=== PATIENT | female | born 1960 | race Caucasian/White ===

== ENCOUNTER 2024-09-08 13:02 | Emergency (ER) | payer BC, SELFPAY ==
[2024-09-08 13:30] VITALS: BP 246/148
--- NOTE | 2024-09-08 13:55 | ED.GENMED ---
History of Present Illness
General
Chief Complaint: Nose Bleed
Source: patient and spouse
Exam Limitations: none
Time Seen by Provider: 09/08/24 13:35
Nursing documentation reviewed up to this point in time: agreed with
History of Present Illness
History of Present Illness:
63-year-old female with history of hypertension presents to the emergency room with her family for evaluation of epistaxis. Patient reports onset of symptoms about 2 to 3 hours prior to arrival and they have been constant since that time. She
reports bleeding primarily of the right nare. No left nare epistaxis. She says she swallowed a small amount of blood but no heavy bleeding into the posterior oropharynx. She denies any trauma or injury. She denies having had this issue in the
past. She has had associated hypertension�unclear if hypertension preceded epistaxis or as a result of epistaxis and anxiety. She denies being on any blood thinners.
Past History
Past History
ED Past Medical History: HTN and Hypercholesterolemia
ED Past Surgical History: None
Social History
Tobacco: Non-smoker
Alcohol: None
Drug: None
Personal:
Living: with family
Review of Systems
Review of Systems
All Other Systems: ROS reviewed and negative except as documented in HPI and ROS
EENT: Reports other (Epistaxis)
Phy Exam
Physical Exam
Physical Exam:
General: Awake, alert, oriented x3; anxious but no acute distress; nasal clamp in place
Head: Normocephalic, atraumatic
Eyes: Conjunctiva normal
Nose: Left nare clear, right nare using bright red blood no clear source identified
Throat: Airway intact, no bleeding in the posterior oropharynx
Neck: Trachea midline, supple without meningismus
Lungs: Clear to auscultation bilaterally, no wheezing, rales, rhonchi
Heart: Regular rate
Neuro: No gross deficits, ambulatory
Skin: no rash
Extremities: Warm and well-perfused
Scores
Heart Failure Risk
Heart Failure Risk Score: Not Applicable
Heart Score for Chest Pain Patients
STEMI patient?: Not applicable
Withdrawal Assessment of Alcohol
Withdrawal Assessment Completed?: Not applicable
Course
Orders/Labs/Results
Orders:
Orders
09/08/24 13:51
Oxymetazoline HCl [Afrin Nasal Council] 30 sprays .ROUTE .STK-MED ONE
09/08/24 14:41
Labetalol HCl [Trandate] 10 mg IV NOW STA
09/08/24 14:42
Electrocardiogram (*1) Urgent
Reason for Study: Hypertension, Benign
EKG- Treatment ONCE
09/08/24 15:05
Complete Blood Count/With Diff Urgent
Comprehensive Metabolic Panel Urgent
HDL Cholesterol Urgent
Hemoglobin A1c [Glycohemoglobin (HgbA1c)] Urgent
LDL Cholesterol, Direct Urgent
09/08/24 15:45
Labetalol HCl [Trandate] 10 mg IV NOW STA
09/08/24 15:57
Irbesartan [Avapro] 75 mg PO NOW STA
Abnormal Lab Results
09/08/24
15:05
WBC 11.6 H 10^3/uL
(4.8-10.8)
Abs Immat Gran (auto) 0.1 H 10^3/uL
(0-0.05)
Absolute Neuts (auto) 9.4 H 10^3/uL
(1.4-6.5)
Immature Gran % 0.8 H %
(0-0.5)
Neutrophils % 80.6 H %
(42.2-75.2)
Lymphocytes % 12.0 L %
(20.5-51.1)
Glucose 115 H mg/dl
(70-99)
09/08/24 15:05
09/08/24 15:05
Vital Signs
Initial and Last Documented VS:
Initial Vital Signs
Pulse Resp BP Pulse Ox
108 18 246/148 97
09/08/24 13:30 09/08/24 13:30 09/08/24 13:30 09/08/24 13:30
Last Documented Vital Signs
Temp Pulse Resp BP Pulse Ox
36.8 C 82 18 187/97 97
09/08/24 17:29 09/08/24 17:29 09/08/24 17:29 09/08/24 17:29 09/08/24 13:30
MDM/Problems Addressed
Differential Diagnosis Includes:
Epistaxis
MDM/Problems Addressed:
63-year-old female presents with acute anterior epistaxis on the right nare. She has had associated hypertension. Vitals and exam as above. Will apply Afrin spray and direct pressure and reassess.
Patient hemostatic after Afrin and direct pressure. She does however remain severely hypertensive. She says that she had been on ARB and thiazide prior to COVID but has not been on medication for quite some time. She does not any chest pain,
shortness of breath, headache. Nevertheless she is severely hypertensive we will send screening labs and provide antihypertensives here.
Blood pressure improved with labetalol but still severely elevated, repeat labetalol. Previously was on irbesartan we will give a dose of this p.o. Clinically patient well-appearing asymptomatic. She remains hemostatic regarding her nosebleed. I
did review labs CBC and CMP unremarkable. EKG shows sinus rhythm. Continue to monitor.
Blood pressure greatly improved with treatment now down to 187/97. She has been persistently asymptomatic and she has been hemostatic since initially holding pressure as described above. Patient does not want to stay in the hospital and she is
requesting to be discharged at this point in time. Will restart on irbesartan 75 mg daily as well as hydrochlorothiazide. I advised patient that she must follow-up with her primary care physician as an outpatient within the next few days to week.
She feels comfortable with this. All questions answered.
Chronic conditions affecting care:
Hypertension
Chronic conditions affecting care: HTN
Acute Exacerbation and/or Progression of Chronic Illness:
Acutely hypertensive�managed as above
Acute Exacerbation and/or Progression of Chronic Illness: HTN
*Pulse Oximetry
Patient hypoxic: no
*EKG
Heart Rate: 102
Rate: tachycardiac
Rhythm: sinus and sinus tachycardia
Hume: normal axis
Interval: normal interval
QRS Pattern: left vent hypertrophy
Ischemia: non-specific ST changes
*Critical Care Note
Total Time (30-74mins, 75-104mins- exclusive of procedures): Not Applicable
Data Reviewed
Source: patient and spouse
ED Attending Note
-
Portions of this chart may have been created with voice recognition software.� Occasional wrong word or��sound alike� substitutions may have occurred due to the inherent limitations of voice recognition software.
Discharge Plan
Departure
Patient Disposition: Home (Routine Discharge)
Date of Disposition: 09/08/24
Time of Disposition: 17:32
Patient with high blood pressure during this ER visit?: Yes
Discharge Problem:
Acute anterior epistaxis, Hypertension
Instructions: Nosebleeds (DC), BLOOD PRESSURE
Prescriptions:
New
irbesartan-hydrochlorothiazide 150-12.5 mg tablet
1 tab PO DAILY Qty: 30 0RF
Referrals:
UNKNOWN - PT DOES,NOT KNOW [Family Provider] -
Activity Restrictions/Additional Instructions:
Thank you for visiting the Emergency Department at [facility].
1. Please schedule a follow up appointment as directed. Call first thing tomorrow morning to make an appointment.
2. If indicated, please take your medications as instructed and indicated on discharge paperwork.
3. If any of your symptoms do not improve, or persist, or become more severe within 6-12 hours, please return to the emergency department for further care.
4. Please return to the emergency department if you develop a headache, neck pain/stiffness, fever greater than 100.4F, chest pain, shortness of breath, persistent nausea, vomiting, slurred speech, difficulty walking, numbness/tingling, weakness,
signs of infection or any other symptoms that are worrisome to you.
Please call [phone] if you have any questions.
Interventions
Interventions:
ED-EENT Assessment Last Done: 09/08/24 15:10
Discharge Date and Time
Print Language: [id number]
[2024-09-08 14:26] VITALS: BP 252/156
[2024-09-08] MEDS: TRANDATE 10 MG IV ×2 (15:05→15:57)
[2024-09-08 15:25] LABS: % Basophils 0.6 % (0-2); % Eosinophils 0.9 % (0-6); % Immature Granulocytes 0.8 % (0-0.5); % Monocytes 5.1 % (1.7-9.3); % Neutrophils 80.6 % (42.2-75.2); Absolute Basophils 0.1 10^3/uL (0-0.2); Absolute Eosinophils 0.1 10^3/uL (0-0.7); Absolute Immature Granulocytes 0.1 10^3/uL (0-0.05); Absolute Lymphocytes 1.4 10^3/uL (1.2-3.4); Absolute Monocytes 0.6 10^3/uL (0.1-0.6); Absolute Neutrophils 9.4 10^3/uL (1.4-6.5); Hematocrit 44.9 % (37.0-47.0); Hemoglobin 15.4 g/dL (12.0-16.0); Mean Corp Hgb Conc. 34.3 g/dL (33.0-37.0); Mean Corpuscular Hgb 28.8 pg (27.0-31.0); Mean Corpuscular Volume 83.9 fL (81.0-99.0); Nucleated Red Blood Cells % 0 %; Platelet Count 303 10^3/uL (130-400); Red Blood Cell Count 5.35 10^6/uL (4.20-5.40); Red Cell Dist. Width 12.9 % (11.5-14.5); White Blood Cell Count 11.6 10^3/uL (4.8-10.8)
[2024-09-08 15:40] LABS: ALT (SGPT) 25 U/L (0-35); AST (SGOT) 23 U/L (14-36); Albumin 4.9 g/dl (3.5-5.0); Alkaline Phosphatase 86 U/L (38-126); Blood Urea Nitrogen 12 mg/dl (7-17); Calcium 9.3 mg/dl (8.4-10.2); Carbon Dioxide 25 mmol/L (22-30); Chloride 102 mmol/L (98-107); Glucose 115 mg/dl (70-99); HDL Cholesterol 67 mg/dl; Sodium 138 mmol/L (135-145); Total Bilirubin 0.6 mg/dl (0.2-1.3); Total Protein 7.9 g/dl (6.3-8.2); eGFR > 60.00
[2024-09-08 15:46] VITALS: BP 219/121
[2024-09-08] MEDS: AVAPRO 75 MG PO (16:13)
[2024-09-08 16:14] LABS: LDL Cholesterol, Direct 193 mg/dl
[2024-09-08 16:50] VITALS: BP 206/96
[2024-09-08 17:29] VITALS: BP 187/97
[2024-09-09 11:32] LABS: Glycohemoglobin (HgbA1c) 5.8 % (4.0-5.6)
== END 2024-09-08 17:42 | disposition home or self-care (01) ==
LOC: EMR 13:02
PROVIDERS: EMERGENCY PHYSICIAN Emergency Medicine
DX: R04.0 Epistaxis (principal); I10 Essential (primary) hypertension; E78.00 Pure hypercholesterolemia, unspecified; Z79.899 Other long term (current) drug therapy
CPT/HCPCS: 99283; 96374; 96376; 80053; 83036; 83718; 83721; 85025; 93005

== ENCOUNTER → 2024-09-21 09:56 | Outpatient (REF) | payer BC, SELFPAY ==
[2024-09-21 12:27] LABS: % Basophils 1.1 % (0-2); % Eosinophils 3.5 % (0-6); % Immature Granulocytes 0.7 % (0-0.5); % Lymphocytes 21.9 % (20.5-51.1); % Monocytes 7.7 % (1.7-9.3); % Neutrophils 65.1 % (42.2-75.2); Absolute Basophils 0.1 10^3/uL (0-0.2); Absolute Eosinophils 0.3 10^3/uL (0-0.7); Absolute Immature Granulocytes 0.1 10^3/uL (0-0.05); Absolute Monocytes 0.7 10^3/uL (0.1-0.6); Absolute Neutrophils 5.9 10^3/uL (1.4-6.5); Hematocrit 47.2 % (37.0-47.0); Hemoglobin 15.6 g/dL (12.0-16.0); Mean Corp Hgb Conc. 33.1 g/dL (33.0-37.0); Mean Corpuscular Hgb 28.6 pg (27.0-31.0); Mean Corpuscular Volume 86.6 fL (81.0-99.0); Mean Platelet Volume 10.3 fL (7.4-10.4); Nucleated Red Blood Cells % 0 %; Platelet Count 315 10^3/uL (130-400); Red Blood Cell Count 5.45 10^6/uL (4.20-5.40); Red Cell Dist. Width 12.8 % (11.5-14.5); White Blood Cell Count 9.1 10^3/uL (4.8-10.8)
[2024-09-21 12:35] LABS: Erythrocyte Sed Rate 15 mm/hour (0-20)
[2024-09-21 12:43] LABS: Urine Albumin Negative (Neg - Trace); Urine Bilirubin Negative (Negative); Urine Glucose Negative (Negative); Urine Ketone Negative (Negative); Urine Leukocyte Trace (Negative); Urine Nitrite Negative (Negative); Urine Occult Blood Negative (Negative); Urine Specific Gravity 1.005 (<1.030); Urine Urobilinogen Negative (Neg - 1+)
[2024-09-21 12:44] LABS: Urine Character Clear (Clear); Urine Color Straw
[2024-09-21 13:13] LABS: ALT (SGPT) 25 U/L (0-35); AST (SGOT) 21 U/L (14-36); Albumin 4.8 g/dl (3.5-5.0); Alkaline Phosphatase 89 U/L (38-126); Blood Urea Nitrogen 13 mg/dl (7-17); Calcium 9.9 mg/dl (8.4-10.2); Carbon Dioxide 27 mmol/L (22-30); Chloride 99 mmol/L (98-107); Glucose 114 mg/dl (70-99); HDL Cholesterol 58 mg/dl; LDL Cholesterol, Calculated 178 mg/dl; Potassium 4.3 mmol/L (3.5-5.1); Sodium 137 mmol/L (135-145); Total Bilirubin 0.7 mg/dl (0.2-1.3); Total Cholesterol 279 mg/dl (50-199); Total Protein 7.7 g/dl (6.3-8.2); Triglyceride 217 mg/dl (10-149); Very Low Density Lipoprotein 43 mg/dl (0-30); eGFR > 60.00
[2024-09-21 13:29] LABS: Urine Squamous Cell >30 /LPF (Few)
[2024-09-21 13:30] LABS: Urine Bacteria Few (Negative)
[2024-09-21 13:35] LABS: Glycohemoglobin (HgbA1c) 5.9 % (4.0-5.6)
[2024-09-21 13:44] LABS: TSH Reflex To Free T4 3.49 uIU/ml (0.47-4.68)
== END ==
LOC: HWLAB 09:56
PROVIDERS: ATTENDING PHYSICIAN Student in an Organized Health Care Education/Training Program
DX: R73.01 Impaired fasting glucose (principal); R09.89 Other specified symptoms and signs involving the circulatory and respiratory systems; E78.2 Mixed hyperlipidemia
CPT/HCPCS: 36415; 80053; 80061; 81003; 81015; 83036; 84443; 85025; 85652; 86140

== ENCOUNTER → 2024-09-26 08:28 | Outpatient (REF) | payer BC, SELFPAY | LOC: RAD 08:28 | PROVIDERS: ATTENDING PHYSICIAN Student in an Organized Health Care Education/Training Program | DX: R09.89 Other specified symptoms and signs involving the circulatory and respiratory systems (principal); I10 Essential (primary) hypertension | CPT/HCPCS: 93975 ==

== ENCOUNTER → 2024-10-06 14:49 | Outpatient (REF) | payer BC, SELFPAY | LOC: DHSLP 14:49 | PROVIDERS: ATTENDING PHYSICIAN Student in an Organized Health Care Education/Training Program | DX: G47.33 Obstructive sleep apnea (adult) (pediatric) (principal) | CPT/HCPCS: 95800 ==

== ENCOUNTER → 2024-10-10 09:48 | Outpatient (REF) | payer BC, SELFPAY ==
[2024-10-10 11:51] LABS: Urine Albumin Negative (Neg - Trace); Urine Bilirubin Negative (Negative); Urine Character Clear (Clear); Urine Color Yellow; Urine Glucose Negative (Negative); Urine Ketone Negative (Negative); Urine Leukocyte Negative (Negative); Urine Nitrite Negative (Negative); Urine Occult Blood Negative (Negative); Urine Urobilinogen Negative (Neg - 1+)
[2024-10-10 11:57] LABS: Blood Urea Nitrogen 13 mg/dl (7-17); Calcium 9.2 mg/dl (8.4-10.2); Carbon Dioxide 26 mmol/L (22-30); Chloride 99 mmol/L (98-107); Glucose 108 mg/dl (70-99); Potassium 4.6 mmol/L (3.5-5.1); Sodium 137 mmol/L (135-145); eGFR > 60.00
[2024-10-10 12:10] LABS: Vitamin D, 25-OH*** 15.9 ng/mL (30-80)
== END ==
LOC: HWLAB 09:48
PROVIDERS: ATTENDING PHYSICIAN Student in an Organized Health Care Education/Training Program
DX: I10 Essential (primary) hypertension (principal); R79.82 Elevated C-reactive protein (CRP); Z13.21 Encounter for screening for nutritional disorder
CPT/HCPCS: 36415; 80048; 81003; 82088; 82306; 84244; 86140

== ENCOUNTER → 2025-06-21 09:09 | Outpatient (REF) | payer BC, SELFPAY ==
[2025-06-21 12:38] LABS: HDL Cholesterol 46 mg/dl; LDL Cholesterol, Calculated 149 mg/dl; Very Low Density Lipoprotein 46 mg/dl (0-30)
[2025-06-21 12:49] LABS: C-Reactive Protein 23.00 mg/L (0.0-10.00)
[2025-06-21 13:05] LABS: Vitamin D, 25-OH*** 27.9 ng/mL (30-80)
== END ==
LOC: HWLAB 09:09
PROVIDERS: ATTENDING PHYSICIAN Student in an Organized Health Care Education/Training Program
DX: E55.9 Vitamin D deficiency, unspecified (principal); R79.82 Elevated C-reactive protein (CRP); E78.2 Mixed hyperlipidemia
CPT/HCPCS: 36415; 80061; 82306; 86140